=== PATIENT | female | born 1990 | race Two or more races ===

== ENCOUNTER 2017-02-21 15:34 | Emergency (ER) | payer SELFPAY ==
[~2017-02-21] VITALS: Ht 175.3 cm; Wt 107.5 kg
[2017-02-21 15:38] VITALS: BP 138/89
[2017-02-21] MEDS ORDERED: LIDOCAINE 1% HCL (LOCAL ANESTH.) INJ 20ML MDV IJ ONE (15:45)
[2017-02-21] MEDS ORDERED: cefTRIAXone SOD 1,000 MG VL IM ONE (16:30)
[2017-02-21] MEDS ORDERED: TETANUS-DIPTH-ACEL PERTUSSIS 0.5ML SYRG IM ONE (16:30)
== END 2017-02-21 16:52 | disposition home or self-care (01) ==
LOC: ER 15:40
DX: S01.551A Open bite of lip, initial encounter (principal); W54.0XXA Bitten by dog, initial encounter; Y93.89 Activity, other specified; Y99.8 Other external cause status; Y92.89 Other specified places as the place of occurrence of the external cause
CPT/HCPCS: 12015; 90471; 90715; 96372; 99284; J0696; J2001